=== PATIENT | male | born 1980 | race Hispanic/Latino ===

== ENCOUNTER 2020-04-25 19:21 | Emergency (ER) | payer MEDICARE, OTHER ==
[~2020-04-25] VITALS: Ht 175.3 cm; Wt 87.3 kg
[2020-04-25] MEDS ORDERED: OXYC-1 PO ×3 (19:35→21:21)
[2020-04-25] MEDS ORDERED: CYCL-707 PO (19:35)
[2020-04-25] MEDS ORDERED: oxyCODONE 5MG TAB PO ONE (20:45)
[2020-04-25 21:30] VITALS: BP 148/72
== END 2020-04-25 21:31 | disposition home or self-care (01) ==
LOC: M ED 19:21
DX: G89.29 Other chronic pain (principal); M54.5 Low back pain; F17.200 Nicotine dependence, unspecified, uncomplicated; Z79.891 Long term (current) use of opiate analgesic; Z79.899 Other long term (current) drug therapy